=== PATIENT | male | born 1955 | race Caucasian/White ===

== ENCOUNTER 2018-10-17 11:04 | Emergency (ER) | payer MEDICARE, MEDICAID ==
--- NOTE | 2018-10-17 11:24 | ED Physician Chart ---
ED Chief Complaint/HPI - Patient Information Date Seen:: 10/17/18 Time Seen:: 11:15 Chief Complaint:: trauma History of Present Illness:: Patient walked into someone else's wheelchair and fell striking his head on a linoleum floor. No loss of consciousness but he was noted to be holding his head afterwards. Patient is nonverbal and does not follow instructions. 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) Review:: Nurse's Note Reviewed ED Review of Systems - Review of Systems General/Constitutional: No fever, No chills, No weight loss, No weakness, No diaphoresis, No edema, No loss of appetite Skin: No skin lesions, No rash, No bruising Head: No headache, No light-headedness Eyes: No loss of vision, No pain, No diplopia ENT: No earache, No nasal drainage, No sore throat, No tinnitus Neck: No neck pain, No swelling, No thyromegaly, No stiffness, No mass noted Cardio Vascular: No chest pain, No palpitations, No PND, No orthopnea, No edema Pulmonary: No SOB, No cough, No sputum, No wheezing GI: No nausea, No vomiting, No diarrhea, No pain, No melena, No hematochezia, No constipation, No hematemesis G/U: No dysuria, No frequency, No hematuria Musculoskeletal: No bone or joint pain, No back pain, No muscle pain Endocrine: No polyuria, No polydipsia Psychiatric: Prior psych history, No depression, No anxiety, No suicidal ideation Hematopoietic: No bruising, No lymphadenopathy Allergic/Immuno: No urticaria, No angioedema Neurological: No syncope, No focal symptoms, No weakness, No paresthesia, No headache, No seizure, No dizziness, No confusion, No vertigo, Other (blunt head trauma) ED Past Medical History - Past Medical History Past Medical History: DM, Seizures, Other (mental disability; blindness left eye ; autism) Family History: Other (not available) Social History: Non Smoker, No Alcohol, Care Facility Surgical History: other (unavailable) Psychiatricy History: Other (see above) Family Medical History - Family Member Mother History Unknown: Yes Ethnicity: Living Status: Unknown ED Physical Exam - Physical Examination General/Constitutional: Awake, No distress Other Head comments:: Occipital erythema without deformity Other Eyes comments:: see above. Patient has left eye blindness. Skin: Nl inspection, No rash ENMT: External ears, nose nl Neck: No nuchal rigidity Respiratory: Nl effort/Exclusion, Clear to Auscultation, No Wheeze/Rhonchi/Rales Cardio Vascular: RRR GI: No tenderness/rebounding/guarding : No CVA tenderness Extremities: Normal digits & nails Neuro/Psych: No focal deficits ED Labs/Radiology/EKG Results - Lab Results Results: Accu-Chek 91 - Radiology Results Results: CT head negative ED Assessment - Assessment General Assessment: Patient's Accu-Chek in the emergency department was 91. Has a history of diabetes so he will receive lunch before discharge. ED Septic Shock - . Is Septic Shock (SBP<90, OR Lactate>4 mmol\L) present?: No ED Reassessment (Disposition) - Reassessment Reassessment Condition:: Unchanged - Diagnosis Diagnosis:: Blunt head trauma; autism; mental retardation/disability - Patient Disposition Discharge/Transfer:: Residential/Boarding Care Condition at Disposition:: Stable, Unchanged
--- NOTE | 2018-10-17 12:29 | Diagnostic Imaging Report ---
CT scan of the brain without contrast History: Trauma Total DLP equals 720 CTDI equals 7.0 Axial sections were obtained from the base of the skull to the vertex. There is a normal ventricular system size. No focal parenchymal lesions are seen. No evidence of any mass effect or shift of midline structures. No extra-axial masses or abnormal fluid collections. Small lacunar infarct is noted in the right basal ganglia old in nature. Impression: Negative examination
== END 2018-10-17 13:20 | disposition short-term general hospital (02) ==
LOC: ER 11:04
DX: S09.90XA Unspecified injury of head, initial encounter (principal); F84.0 Autistic disorder; F79 Unspecified intellectual disabilities; E11.9 Type 2 diabetes mellitus without complications; W05.0XXA Fall from non-moving wheelchair, initial encounter; Y93.89 Activity, other specified; Y92.89 Other specified places as the place of occurrence of the external cause; Y99.8 Other external cause status
CPT/HCPCS: 70450-TC; 82948-90; Z7502